=== PATIENT | male | born 1970 | race Caucasian/White ===

== ENCOUNTER 2020-12-22 07:52 | Outpatient (CLI) | payer OTHER, SELFPAY ==
--- NOTE | 2020-12-22 08:32 | CT_ITS ---
WS: [id number] CT NECK WITH CONTRAST HISTORY: DYSPHAGIA TECHNIQUE: Contiguous 5 mm axial images are performed through the neck with intravenous contrast. Sag ittal and coronal reformats are also submitted. All CT scans at [facility] use at least o ne of these dose optimization techniques: automated exposure control; mA and/or kV adjustment per pat ient size (includes targeted exams where dose is matched to clinical indication); or iterative recons truction. CONTRAST: CONTRAST: Omnipaque 300; 95 mL IV. DLP: 1284.72 mGycm COMPARISON: None available. Nasopharynx, oropharynx, hypopharynx and larynx are unremarkable. No soft tissue masses or abnormal e nhancement. Torus tubarius and fossa of Rosenmuller and parapharyngeal fat are normal. No significant lymphadenopathy is identified. Thyroid gland and salivary glands are normally enhancing with no masses. No osseous abnormalities. Visualized portions of the skull base demonstrate no abnormalities. Orbits and globes are within norm al limits. No soft tissue masses. Visualized paranasal sinuses and mastoid air cells are normal. Lung apices are clear. CT/CT neck w con* [id number] IMPRESSION: Unremarkable neck CT.
--- NOTE | 2020-12-22 08:32 | FL_ITS ---
WS: [id number] ESOPHAGRAM WITH FLUOROSCOPY HISTORY: DYSPHAGIA COMPARISON: None available. FLUOROSCOPY TIME: 1.3 minutes. Esophagus and swallowing function: Patient swallowed the barium mixture without difficulty. No strict ures or mucosal abnormalities are identified. Mild persistent coating of the oral pharynx with barium after swallowing. No asymmetry or aspiration identified. Gastroesophageal reflux: None. Hiatal hernia: Small reducible hiatal hernia. FL/FL barium swallow [id number] IMPRESSION: 1. Mild persistent pharyngeal coating after swallowing the barium mixture. No aspiration. 2. Small reducible hiatal hernia. 3. No esophageal stricture.
[2020-12-22] MEDS: iohexol 300 mg/mL 100 mL Btl IV (09:31)
== END 2020-12-22 07:53 | disposition home or self-care (01) ==
PROVIDERS: Visit Provider Specialist
DX: R13.10 Dysphagia, unspecified (principal); K44.9 Diaphragmatic hernia without obstruction or gangrene
CPT/HCPCS: 70491; 74220; Q9967

== ENCOUNTER → 2021-01-22 13:08 | Outpatient (BNVA) | payer OTHER, SELFPAY | PROVIDERS: Visit Provider Nurse Practitioner | DX: N34.2 Other urethritis (principal); R39.9 Unspecified symptoms and signs involving the genitourinary system | CPT/HCPCS: 81000; 87491; 87591 ==

== ENCOUNTER 2024-10-02 09:34 | Outpatient (CLI) | payer OTHER, SELFPAY ==
--- NOTE | 2024-10-02 09:36 | FL_ITS ---
WS: [id number] Barium swallow and esophagram, 10/02/2024 Clinical Data: DYSPHAGIA,OROPHARYNGEAL PHASE Comparison: Barium swallow esophagram, 12/22/2020 Fluoroscopy time: 1min [id number] # of spot films: 6 Findings: The patient swallowed the thick and thin barium, and it flowed through the hypopharynx without hesitation. No stricture, mass, polyp or erosion was seen. No aspiration or penetration occurred. The barium entered the esophagus and there was normal motility throughout. No stricture, polyp, mass, erosion or ulcer was noted. No reflux was present. There was a small hiatal hernia. FL/FL barium swallow [id number] Impression: Small hiatal hernia.
== END 2024-10-02 09:35 | disposition home or self-care (01) ==
LOC: RAD 09:35
PROVIDERS: Visit Provider Specialist
DX: R13.12 Dysphagia, oropharyngeal phase (principal); K44.9 Diaphragmatic hernia without obstruction or gangrene
CPT/HCPCS: 74220

== ENCOUNTER 2025-07-01 10:32 | Day surgery (SDC) | payer OTHER, SELFPAY ==
[2025-07-01 10:45] VITALS: BP 116/82; PULSE 56; RESP 18; TEMP 36.4; O2SAT 97; BMI 23.7
--- NOTE | 2025-07-01 10:49 | W.PM.OPSUD ---
Surgery/Procedure H&P Update DATE OF PROCEDURE: July 01, 2025 DATE H&P PERFORMED: 06/23/25 H&P UPDATE INFORMATION: I have reviewed H&P completed within last 30 days, I have examined patient prior to procedure, No changes to prior documentation and Risks and benefits of the procedure reviewed PLANNED PROCEDURE: Operation Date: 07/01/25 12:15 Proposed Procedures p EGD EGD with Biopsy [id number] G0105 K92.1 K21.9(Not Applicable) - Addy Dominguez MD s Colonoscopy(Not Applicable) - Addy Dominguez MD
--- NOTE | 2025-07-01 10:52 | ANES.PREANE2 ---
Pre-Anesthetic Assessment Height/Weight: Height 1.88 m Weight 83.915 kg Temp Pulse Resp BP Pulse Ox O2 Del Method 97.5 F L 56 L 18 116/82 97 Room Air 07/01/25 10:45 07/01/25 10:45 07/01/25 10:45 07/01/25 10:45 07/01/25 10:45 07/01/25 10:45 Preop Diagnosis: gerd; screening Operation Date: 07/01/25 12:15 Proposed Procedures p EGD EGD with Biopsy [id number] G0105 K92.1 K21.9(Not Applicable) - Addy Dominguez MD s Colonoscopy(Not Applicable) - Addy Dominguez MD Was Beta Warren taken within 24 hours: N/A Was Clonidine taken within 24 hours: N/A Last intake: Intake Last Liquid Date 06/30/25 Last Liquid Time 22:00 Last Solid Date 06/29/25 Last Solid Time 19:00 Social Alcohol and Tobacco 1 pack(s) per day Exam alert, oriented x 3, clear to auscultation bilaterally and regular rate & rhythm Airway Submandibular: within normal limits Cervical ROM: within normal limits Mallampati: Class II Dentition: chipped Comments: Comments: facial hair History/ROS No significant history except as noted CV/HEM None reported None reported Hepatic None reported GI Gastroesophageal Reflux Disease Metabolic None reported Neuropsych None reported Anesthetic Plan ASA status: 2 Anesthesia: MAC Other: back up general Risk of > 500 ml blood loss (7ml/kg in children): No Medications/Allergies Home Medications ?Medication ?Instructions ?Recorded ?Confirmed ?Last Taken ?Type pantoprazole 40 mg tablet,delayed 40 mg PO BID #60 tabs 06/17/25 06/25/25 06/30/25 Rx release (Protonix) sucralfate 1 gram tablet (Carafate) 1 g PO BID #60 tabs 06/17/25 06/25/25 06/30/25 Rx ondansetron 8 mg disintegrating 8 mg PO Q8H PRN nausea and 06/23/25 06/25/25 06/30/25 Rx tablet vomiting #3 tabs Allergies Allergy/AdvReac Type Severity Reaction Status Date / Time No Known Allergies Allergy Verified 07/01/25 10:43 [facility] Anesthesia Social History (Updated 11/19/25 @ 13:42 by Jaqueline Robertson RN) Smoking and tobacco/nicotine status: current every day tobacco/nicotine user
[2025-07-01 11:54] VITALS: BP 94/67; PULSE 58; RESP 16; TEMP 36.1; O2SAT 93
[2025-07-01 12:08] VITALS: BP 115/78; PULSE 57; RESP 18; O2SAT 97
--- NOTE | 2025-07-01 12:35 | ANE.PACU2 ---
Inpatient post-anesthesia follow up: Airway intact: Yes Vital signs: Temperature 97 F Pulse Rate 57 Respiratory Rate 18 Blood Pressure 115/78 Pulse Oximetry 97 Oxygen Delivery Me thod Room Air Oxygen Flow Rate Fraction of Inspir ed Oxygen Hydration adequate: Yes Nausea and vomiting: No Pain level: 1 Mental status: Baseline
== END 2025-07-01 12:36 | disposition home or self-care (01) ==
PROVIDERS: PCP Nurse Practitioner Adult Health; Visit Provider Student in an Organized Health Care Education/Training Program
PROC: 0DJ08ZZ Inspection of Upper Intestinal Tract, Via Natural or Artificial Opening Endoscopic (ICD-10-PCS; principal; 2025-07-01 12:15)
PROC: 0DJD8ZZ Inspection of Lower Intestinal Tract, Via Natural or Artificial Opening Endoscopic (ICD-10-PCS; CPT 45378; 2025-07-01 12:15)
DX: K92.1 Melena (principal); K64.4 Residual hemorrhoidal skin tags; D12.4 Benign neoplasm of descending colon; D12.8 Benign neoplasm of rectum; D12.5 Benign neoplasm of sigmoid colon; K21.9 Gastro-esophageal reflux disease without esophagitis; K29.80 Duodenitis without bleeding; K29.70 Gastritis, unspecified, without bleeding; F17.200 Nicotine dependence, unspecified, uncomplicated
CPT/HCPCS: 43239; 45380; 45385; 88305; J2704; J7030

== ENCOUNTER → 2025-07-21 11:21 | Outpatient (BNVA) | payer OTHER, SELFPAY | PROVIDERS: PCP Family Medicine; Visit Provider Family Medicine | DX: R10.A2 Flank pain, left side (principal); R31.9 Hematuria, unspecified; R30.0 Dysuria | CPT/HCPCS: 80053; 81000; 85025 ==